=== PATIENT | female | born 1940 | race Caucasian/White ===

== ENCOUNTER 2016-09-28 10:19 | Inpatient (IN) | payer MEDICARE, OTHER ==
[2016-09-27 21:41] LABS: A/G RATIO 1.3 (0.7-1.9); ALBUMIN 3.6 G/DL (3.5-5.0); CALCIUM, SERUM 8.6 MG/DL (8.5-10.4); CHLORIDE, SERUM 109 MMOL/L (96-112); CHOL/HDL RATIO(NOT ORDER) 3.1 (0-5); CHOLESTEROL 154 MG/DL (< 200); FREE T4 0.82 NG/DL (0.76-1.46); GLOBULIN 2.8 G/DL (2.5-4.1); GLUCOSE, SERUM 111 MG/DL (60-99); HDL CHOLESTEROL 50 MG/DL (> 49); LDL CHOLESTEROL 83 MG/DL (< 130); NON-HDL CHOLESTEROL 104 MG/DL (< 160); POTASSIUM, SERUM 4.4 MMOL/L (3.5-5.3); SGOT(AST) 8 U/L (5-40); SGPT(ALT) 12 U/L (5-65); SODIUM, SERUM 142 MMOL/L (135-148); TOTAL BILIRUBIN 0.2 MG/DL (0-1.2); TOTAL PROTEIN 6.4 G/DL (6.0-8.5); TRIGLYCERIDE 108 MG/DL (< 150); ULTRASENSITIVE TSH 0.891 MCIU/ML (0.358-3.740)
[2016-09-27 21:58] LABS: ALKALINE PHOSPHATASE 85 U/L (45-117); BUN (BLOOD UREA NITROGEN) 49 MG/DL (6-23); CO2 (CARBON DIOXIDE) 23 MMOL/L (24-34); CREATININE 4.84 MG/DL (0.55-1.02); GFR AFRICAN AMERICAN 9 ML/MIN (>=60); GFR NON AFRICAN AMERICAN 8 ML/MIN (>=60)
[2016-09-27 22:20] LABS: BASOPHILS 0.4 %; BASOPHILS ABSOLUTE 0.03 10/3/uL (0.0-0.16); EOSINOPHILS 2.6 %; EOSINOPHILS ABSOLUTE 0.22 10/3/uL (0.0-0.53); HEMATOCRIT 29.2 % (36.0-48.0); IMMATURE GRANULOCYTES 1.7 %; IMMATURE GRANULOCYTES ABSOLUTE 0.14 10/3/uL (0.0-0.11); LYMPHOCYTES 20.7 %; LYMPHOCYTES ABSOLUTE 1.74 10/3/uL (0.67-4.30); MEAN CORPUS HGB CONC 30.8 g/dL (32.0-36.0); MEAN CORPUSCULAR HEMOGLOB 29.3 pg (26.0-34.0); MEAN CORPUSCULAR VOLUME 95.1 fL (80-100); MONOCYTES 5.7 %; MONOCYTES ABSOLUTE 0.48 10/3/uL (0.21-1.20); NEUTROPHILS 68.9 %; PLATELET COUNT 284 10/3/uL (150-400); RBC DISTRIBUTION WIDTH 13.8 % (12.0-16.0); RED CELL COUNT 3.07 10/6/uL (4.0-5.6); WHITE BLOOD CELLS 8.4 10/3/uL (4.5-10.5)
[2016-09-27 22:24] LABS: MANUAL DIFF NO %
--- NOTE | ~2016-09-28 | DS ---
Discharge Summary [address] [place]. [address] NAME: ELIA REYES : 38 STATUS : DIS IN PAT#: [id number] AGE: 76 ADM/REG DATE : 09/28/16 MR#: [id number] REPORT SERV DATE: 09/30/16 DICTATED BY: ANGELA DOWNEY DATE: 09/29/16 REPORT STATUS : Draft TRANSCRIBED BY: MODL DATE: 09/29/16 ADMISSION DATE: 09/28/2016 DISCHARGE DATE: 09/29/2016 HISTORY OF PRESENT ILLNESS: Ms Reyes is a 76-year-old female with a history of COPD and pulmonary hypertension who was sent to the emergency room from primary care physician's request secondary to acute renal failure. For further details, please refer to H and P dictated by Dr. Burton on 09/28/2016. HOSPITAL COURSE: Upon presentation to the hospital, the patient was admitted under Hospitalist Service with nephrology consult. For further details, please refer to consultation note by Nephrology dictated on 09/28/2016. During her hospitalization, the patient has remained hemodynamically stable. Initial plan from Nephrology was for the patient to be kept inpatient while dialysis initiated, however, given the patient has remained hemodynamically stable, the patient was re-evaluated by Nephrology with plans for the patient to follow up with Nephrology as outpatient to initiate dialysis as planned. The plan has been discussed with the patient who voices understanding and is agreeable with this plan. DISCHARGE DIAGNOSES: 1. End-stage renal disease. 2. Chronic obstructive pulmonary disease. 3. Hypertension. DISCHARGE MEDICATIONS: 1. Tiotropium. 2. Albuterol. 3. PhosLo per Nephrology. DISCHARGE EXAM: VITAL SIGNS: Blood pressure 136/60 with a pulse of 96, respirations 12, O2 saturation 99% on room air. GENERAL: The patient sitting in chair, in no acute distress. Appears stated age. HEENT: Normocephalic and atraumatic. Extraocular motors intact. Moist oral mucosa. NECK: Trachea midline and symmetric. No JVD noted. CHEST: Nontender to palpation. CARDIOVASCULAR: Regular rate and rhythm. S1, S2. No murmurs, rubs, or gallops. LUNGS: Clear to auscultation bilaterally. ABDOMEN: Positive bowel sounds. Nontender. Nondistended. EXTREMITIES: Trace pitting edema. No cyanosis. No clubbing. NEURO: Alert and oriented x3. No focal deficits appreciated. DISPOSITION: The patient will be discharged home given that Nephrology does not want to initiate inpatient hemodialysis, but wants the process to be started in the outpatient setting. So, the patient will be discharged home to follow up with Nephrology. ACTIVITY: As tolerated. Discharge Summary [address] [place]. [address] NAME: ELIA REYES : 38 STATUS : DIS IN PAT#: [id number] AGE: 76 ADM/REG DATE : 09/28/16 MR#: [id number] REPORT SERV DATE: 09/30/16 DICTATED BY: ANGELA DOWNEY DATE: 09/29/16 REPORT STATUS : Draft TRANSCRIBED BY: TONIO DATE: 09/29/16 DIET: Regular. Greater than 30 minutes was spent providing counseling, planning discharge, dictation of note. DICTATED BY: MD ISAURA Akers/TONIO Angela Downey MD / [id number] CC: MD JEET Akers MARGARET
--- NOTE | ~2016-09-28 | CN ---
Consultation Report [facility] [address] [place]. [address] NAME: ELIA ALDANA : 38 STATUS : ADM IN PAT#: [id number] AGE: 76 ADM/REG DATE : 09/28/16 MR#: [id number] REPORT SERV DATE: 09/28/16 DICTATED BY: RAMA CAAL DATE: 09/28/16 REPORT STATUS : Draft TRANSCRIBED BY: MODL DATE: 09/28/16 DATE OF CONSULTATION: 09/28/2016 TIME: 3:15 p.m. REASON FOR CONSULTATION: Elevation in BUN and creatinine. ASSESSMENT AND PLAN: Incidental finding of creatinine of 4.84 in a 76-year-old female as of 09/27 with only 30 mg/dL proteinuria, no hematuria or pyuria on a urinalysis, and essentially asymptomatic except for chronic lower limb edema. CT scan shows bilateral nephrolithiasis, but no hydronephrosis and I suspect she has a chronic glomerulonephritis versus interstitial nephritis longstanding based on a previous serum creatinine of 1.56 noted in 2012. Unfortunately, I suspect that the patient is now at end-stage renal failure, and plan therefore is as follows: 1. I would stop the IV fluids of the present bag. 2. No blood draws or IVs in left arm. Would place a ready-to-go graft. Initiate dialysis during this admission. 3. She has bilateral lower limb edema, questionable history of pulmonary fibrosis, evaluated at [facility] three years ago, but not on any diuretics, and we will get records from Dr. Lawler's office. 4. Check a PTH and vitamin D level. 5. Serological workup has been ordered to evaluate for possible cause of chronic kidney disease, but considering her asymptomatic nature, suspect this is underlying chronic kidney disease that has progressed over time. Consideration for a pulmonary-renal syndrome could be made, but at this point, her disease appears to be too far gone as far as the kidneys are concerned. HISTORY OF PRESENT ILLNESS: History is obtained from the records and the patient. She is a very pleasant 76-year-old female, whose initial history goes back 20 years. She had a lumpectomy of left breast with radiation therapy treatment for breast cancer by Dr. Victoria, who appeared to probably remain like a primary care physician she has had for 20 years almost. She remains stable and no recurrence of breast cancer and then developed what appeared to be some lung difficulties three years ago and was seen at [facility] and also now followed by Dr. Lawler and placed on oxygen. She denies any active workup done, but features did suggest either a chronic pneumonitis or a primary lung fibrosis, and she states she has had chronic lower limb edema. She was advised by Pulmonary to keep her lower limbs elevated, but has not been on any chronic diuretics. There are no precipitating diseases associated with her chronic kidney disease. Denies NSAID use. No history of hematuria, difficulty in voiding, or passage of kidney stones. No history of rash. Her main issue is the lower limb edema. She has no family history of end-stage renal failure and she does not admit to any acute kidney injuries, although her creatinines noted in the computer are creatinine 1.2 in 2010, 1.56 in 2012, and the marked elevations now. She is chronically anemic as well, indicating some degree of CKD. She denies any pruritus or dry skin. No hemoptysis. No recent change in vision or hearing. Actually denies any loss of appetite. Consultation Report [address] [place]. [address] NAME: ELIA ALDANA : 38 STATUS : ADM IN [facility]#: [id number] AGE: 76 ADM/REG DATE : 09/28/16 MR#: [id number] REPORT SERV DATE: 09/28/16 DICTATED BY: RAMA CAAL DATE: 09/28/16 REPORT STATUS : Draft TRANSCRIBED BY: TONIO DATE: 09/28/16 PAST MEDICAL HISTORY: Includes: 1. History of breast cancer as described above. 2. Pulmonary fibrosis with edema. 3. CT scan shows bilateral nephrolithiasis, but at this time, has not passed any stones. ALLERGIES: NO KNOWN DRUG ALLERGIES. MEDICATIONS: She is on albuterol and Stiolto inhaler at home. SOCIAL HISTORY: She does not smoke cigarettes. No alcohol. No medication or street drug usage. No history of heavy metal exposure. She is essentially a retired afterschool. REVIEW OF SYSTEMS: As per the HPI. PHYSICAL EXAMINATION: GENERAL: She is a very pleasant, elderly lady of average built, in no acute distress. HEENT: Her pupils are equal and reacting to light. She is not pale or jaundiced. Oral mucosa is moist. No pharyngitis. NECK: Supple. No thyromegaly. No carotid bruits. No supraclavicular, axillary, or inguinal adenopathy. VITAL SIGNS: Her blood pressure is 162/90, heart rate is in the 90s, afebrile. HEART: Conifer beats not displaced. S1 and S2. No rub. Healed surgical scar is noted. LUNGS: Air entry is equal bilaterally. CHEST: Clear to auscultation. She is on oxygen 2 L by nasal cannula. ABDOMEN: Mild distention. No hepatosplenomegaly. No tenderness, guarding, or rebound. Bowel sounds normal. EXTREMITIES: She has about 2+ peripheral edema. There is mild erythema of the legs, but otherwise no rash reported. Peripheral pulses are present in dorsalis pedis and posterior tibial. Muscle bulk and tone appropriate for age. No acute arthritic findings noted. NEUROLOGIC: She is awake, alert and oriented to time, place, and person. No gross neurological deficits described, and affect does not appear depressed. LABORATORY DATA: CT scan of her abdomen and pelvis indicates bilateral nephrolithiasis without hydronephrosis. She has a large gallbladder diverticulum containing bile with multiple gallstones, no inflammation. Small hepatic cysts were noted as well. She has a hemoglobin of 9.4; hematocrit 30.2; white count is 8.1; platelet count is 265,000. Sodium 143, potassium 4.4, chloride 115, CO2 of 23, BUN 47, creatinine 5.03. Her pH was 6.0, protein 30 mg/dL. There are no rbc's or white blood cells on her urinalysis. MG/MODL Rama Consultation Report [address] [place] [facility] [address] NAME: ELIA ALDANA : 38 STATUS : ADM IN [facility]#: [id number] AGE: 76 ADM/REG DATE : 09/28/16 MR#: [id number] REPORT SERV DATE: 09/28/16 DICTATED BY: RAMA CAAL DATE: 09/28/16 REPORT STATUS : Draft TRANSCRIBED BY: MODL DATE: 09/28/16 Esha Caal / [id number] CC: MD Jonnie Akers Margaret
--- NOTE | ~2016-09-28 | HP ---
History And Physical [address] [facility] [place]. [address] NAME: ELIA ALDANA : 38 STATUS : ADM IN [facility]#: [id number] AGE: 76 ADM/REG DATE : 09/28/16 MR#: [id number] REPORT SERV DATE: 09/28/16 DICTATED BY: JEAN-CLAUDE HELTON DATE: 09/28/16 REPORT STATUS : Draft TRANSCRIBED BY: MODFabienne DATE: 09/28/16 DATE OF ADMISSION: 09/28/2016 CHIEF COMPLAINT: Acute renal failure. HISTORY OF PRESENT ILLNESS: A 76-year-old white female with past medical history of COPD, pulmonary hypertension, presenting with acute renal failure of unknown duration. Apparently, the patient is trying to reestablish with a primary care physician and had some labs done. The patient apparently had elevated creatinine of 4. The patient states she has not seen a physician for approximately three years. Her last known encounter was approximately two years ago at [facility] where she gained massive amount of edema which required diuresis. Apparently, the patient after her encounter of diuresis never saw physician again until now. The patient denies any oliguria or anuria. She denies any history of heart failure, hemorrhage, diarrhea, fevers, chills, flank pain, or dysuria. In addition, the patient denies any abdominal pain or foamy urine. PAST MEDICAL HISTORY: As above. MEDICATIONS: The patient takes: 1. Albuterol 1 puff q.4 hours p.r.n. 2. Stiolto Respimat 2.5 mcg two puffs daily. ALLERGIES: NO KNOWN DRUG ALLERGIES. SOCIAL HISTORY: Quit smoking approximately two years ago. Nondrinker. FAMILY HISTORY: Significant for hypertension, kidney stones, and Parkinson's. REVIEW OF SYSTEMS: A 10-point review of systems conducted, which were negative except for above complaints. PHYSICAL EXAMINATION: VITAL SIGNS: Temperature 97.2, pulse of 105, respiratory rate 20, BP 142/56, and O2 saturation 96% on 2 L. HEAD AND NECK: Normocephalic, atraumatic. CARDIOVASCULAR: S1, S2. Regular rate and rhythm. LUNGS: Good air entry. No wheeze, rales, or rhonchi. ABDOMEN: Soft, nontender, nondistended. Positive bowel sounds. No organomegaly. EXTREMITIES: No clubbing, cyanosis, or edema. NEUROLOGICAL: Awake, alert, and oriented x3. Cranial nerves 2 through 12 grossly intact. No focal neurological deficit. LABORATORY DATA: Sodium 142, potassium 4.4, chloride 115, bicarb 23, BUN 47, creatinine 5.03, glucose 121, GFR 8, and calcium 8.7, total protein 6.9, albumin 3.6, globulin 3.3, total bilirubin 0.2, alkaline phosphatase 90, ALT 12, AST 9. WBC 8.1, hemoglobin 9.4, hematocrit 30.2, and platelets. cholesterol on 09/27/2016 shows cholesterol 154, DL 50, LDL History And Physical [address] [address] NAME: ELIA ALDANA : 38 STATUS : ADM IN [facility]#: [id number] AGE: 76 ADM/REG DATE : 09/28/16 MR#: [id number] REPORT SERV DATE: 09/28/16 DICTATED BY: JEAN-CLAUDE HELTON. DATE: 09/28/16 REPORT STATUS : Draft TRANSCRIBED BY: MODL DATE: 09/28/16 83, triglycerides 108. CT of abdomen and pelvis without contrast shows bilateral nephrolithiasis without hydronephrosis or urolithiasis. Large gallbladder diverticulum containing inspissated bowel and multiple gallstones. No acute inflammation identified. Small hepatic cyst. ASSESSMENT/PLAN: 1. Acute renal failure, unknown etiology. Rule out whether it is pre-intra or post-renal. We will check urine sodium and urine creatinine to check for FENa. We will also order renal consult. In addition, we will also order ultrasound of the bladder and kidneys. In addition, we will also start the patient on half NS at 60 mL an hour. 2. Chronic obstructive pulmonary disease, currently stable. Continue the patient's breathing treatments and Respimat. 3. Pulmonary hypertension, asymptomatic. 4. Deep venous thrombosis prophylaxis. We will give the patient heparin. MADY/EVERL Jean-Claude Helton MD / [id number] CC: MD JEET Akers MARGARET
[2016-09-28 10:10] LABS: BASOPHILS 0.4 %; BASOPHILS ABSOLUTE 0.03 10/3/uL (0.0-0.16); EOSINOPHILS 2.5 %; HEMATOCRIT 30.2 % (36.0-48.0); HEMOGLOBIN 9.4 g/dL (12.0-16.0); IMMATURE GRANULOCYTES 1.8 %; IMMATURE GRANULOCYTES ABSOLUTE 0.15 10/3/uL (0.0-0.11); LYMPHOCYTES 16.9 %; LYMPHOCYTES ABSOLUTE 1.37 10/3/uL (0.67-4.30); MANUAL DIFF NO %; MEAN CORPUS HGB CONC 31.1 g/dL (32.0-36.0); MEAN CORPUSCULAR HEMOGLOB 29.8 pg (26.0-34.0); MEAN CORPUSCULAR VOLUME 95.9 fL (80-100); MEAN PLATELET VOLUME 9.3 fL (9.2-13.0); MONOCYTES ABSOLUTE 0.41 10/3/uL (0.21-1.20); NEUTROPHILS 73.4 %; NEUTROPHILS ABSOLUTE 5.96 10/3/uL (2.02-8.40); PLATELET COUNT 265 10/3/uL (150-400); RBC DISTRIBUTION WIDTH 13.5 % (12.0-16.0); RED CELL COUNT 3.15 10/6/uL (4.0-5.6); WHITE BLOOD CELLS 8.1 10/3/uL (4.5-10.5)
[~2016-09-28 10:19] MED LIST: STIOLTO RESPIMAT4 GM INH; VENTOLIN HFA INH
[2016-09-28 10:23] LABS: ASCORBIC ACID (UR NOT ORDER) NEG (NEG); BILIRUBIN, URINE NEGATIVE (NEG); ER URINALYSIS TAT 0 Hrs 08 Mins; KETONE, URINE NEGATIVE (NEG); LEUKOCYTE ESTERASE(NOT OR NEG (NEG); NITRITE (URINE) NEG (NEG); WBC (NOT ORDERED) (RFLEX) 1 (0-5)
[2016-09-28 10:28] LABS: A/G RATIO 1.1 (0.7-1.9); ALBUMIN 3.6 G/DL (3.5-5.0); ALKALINE PHOSPHATASE 90 U/L (45-117); BUN (BLOOD UREA NITROGEN) 47 MG/DL (6-23); CALCIUM, SERUM 8.7 MG/DL (8.5-10.4); CHLORIDE, SERUM 115 MMOL/L (96-112); CO2 (CARBON DIOXIDE) 23 MMOL/L (24-34); CREATININE 5.03 MG/DL (0.55-1.02); GFR AFRICAN AMERICAN 9 ML/MIN (>=60); GFR NON AFRICAN AMERICAN 8 ML/MIN (>=60); GLOBULIN 3.3 G/DL (2.5-4.1); GLUCOSE, SERUM 121 MG/DL (60-99); POTASSIUM, SERUM 4.4 MMOL/L (3.5-5.3); SGOT(AST) 9 U/L (5-40); SGPT(ALT) 12 U/L (5-65); SODIUM, SERUM 143 MMOL/L (135-148); TOTAL BILIRUBIN 0.2 MG/DL (0-1.2); TOTAL PROTEIN 6.9 G/DL (6.0-8.5)
[2016-09-28 22:52] LABS: CREATININE RANDOM UR 81.6 MG/DL; UR PROTEIN/CREAT RATIO 1.14 (< 0.2)
[2016-09-29 05:56] LABS: BASOPHILS 0.2 %; BASOPHILS ABSOLUTE 0.02 10/3/uL (0.0-0.16); EOSINOPHILS 2.5 %; HEMOGLOBIN 7.9 g/dL (12.0-16.0); IMMATURE GRANULOCYTES 1.5 %; IMMATURE GRANULOCYTES ABSOLUTE 0.12 10/3/uL (0.0-0.11); LYMPHOCYTES ABSOLUTE 2.27 10/3/uL (0.67-4.30); MEAN CORPUS HGB CONC 30.3 g/dL (32.0-36.0); MEAN PLATELET VOLUME 9.5 fL (9.2-13.0); MONOCYTES 7.2 %; MONOCYTES ABSOLUTE 0.58 10/3/uL (0.21-1.20); NEUTROPHILS 60.6 %; NEUTROPHILS ABSOLUTE 4.91 10/3/uL (2.02-8.40); PLATELET COUNT 232 10/3/uL (150-400); RBC DISTRIBUTION WIDTH 13.6 % (12.0-16.0); RED CELL COUNT 2.72 10/6/uL (4.0-5.6); WHITE BLOOD CELLS 8.1 10/3/uL (4.5-10.5)
[2016-09-29 05:58] LABS: HEMATOCRIT 26.1 % (36.0-48.0); MANUAL DIFF NO %
[2016-09-29 06:01] LABS: INTERNATIONAL NORMAL RATI 1.1 UNITS (-); PROTIME (NOT ORD) 14.1 SEC (12.0-14.5)
[2016-09-29 06:13] LABS: INTACT PTH (ICMA) 768.7 PG/ML (10.0-65.0)
[2016-09-29 06:39] LABS: % IRON SAT 23 % (20-50); A/G RATIO 1.1 (0.7-1.9); ALBUMIN 3.1 G/DL (3.5-5.0); ALKALINE PHOSPHATASE 79 U/L (45-117); BUN (BLOOD UREA NITROGEN) 45 MG/DL (6-23); CALCIUM, SERUM 8.3 MG/DL (8.5-10.4); CHLORIDE, SERUM 115 MMOL/L (96-112); CO2 (CARBON DIOXIDE) 21 MMOL/L (24-34); COMPLEMENT C3 103 MG/DL (75-161); CREATININE 4.96 MG/DL (0.55-1.02); FERRITIN 112 NG/ML (8-252); GFR AFRICAN AMERICAN 9 ML/MIN (>=60); GFR NON AFRICAN AMERICAN 8 ML/MIN (>=60); GLOBULIN 2.8 G/DL (2.5-4.1); IRON BINDING CAPACITY 238 MCG/DL (225-410); IRON, SERUM 55 MCG/DL (35-150); PHOSPHORUS, SERUM 5.2 MG/DL (2.5-4.5); POTASSIUM, SERUM 4.4 MMOL/L (3.5-5.3); SGOT(AST) 8 U/L (5-40); SGPT(ALT) 11 U/L (5-65); SODIUM, SERUM 143 MMOL/L (135-148); TOTAL BILIRUBIN 0.2 MG/DL (0-1.2); TOTAL PROTEIN 5.9 G/DL (6.0-8.5)
[2016-09-29 06:41] LABS: DIRECT BILIRUBIN < 0.1 MG/DL (0.0-0.4); FOLATE 11.4 NG/ML (>5.2); GLUCOSE, SERUM 95 MG/DL (60-99); INDIRECT BILIRUBIN(NOT ORDER) 0.1 MG/DL (0.1-0.9)
[2016-09-29] MEDS ORDERED: PHOSLO PO (15:59)
[2016-10-02 10:14] LABS: A/G 1.87 RATIO (0.9-2.10); ALB RELATIVE % 65.2 % (60.0-89.0); ALBUMIN (ELECTRO) 3.85 GM/DL (3.2-5.5); ALPHA 1 (ELECTRO) 0.18 GM/DL (0.1-0.4); ALPHA 1 RELAT % (NOT ORD) 3.1 % (1.0-4.0); ALPHA 2 (ELECTRO) 0.73 GM/DL (0.5-1.10); ALPHA 2 RELAT % 12.3 % (4.5-26.0); BETA GLOBULIN (SPE) 0.65 GM/DL (0.60-1.30); BETA RELATIVE % 11.1 % (9.0-22.0); GAMMA GLOBULIN (SPE) 0.49 G/DL (0.70-1.60); GAMMA RELAT % 8.3 % (6.0-22.0)
[2016-10-02 10:18] LABS: T PROTEIN (ELECT)(NOT OR 5.9 G/DL (6.0-8.5)
[2016-10-02 10:28] LABS: HEPATITIS B CORE AB IGM NON-REACTIVE (NON-REAC); HEPATITIS C ANTIBODY NON-REACTIVE (NON-REACT)
[2016-10-02 10:29] LABS: HIV COMBO NON-REACTIVE (NON REAC)
[2016-10-02 10:30] LABS: HEP A ANTIBODY IGM NON-REACTIVE (NON-REACT)
[2016-10-02 10:35] LABS: HEPATITIS B SURFACE ANTIGEN NON-REACTIVE (NON-REACT)
[2016-10-02 11:44] LABS: HEMATOCRIT 26.1 % (()); RBC FOLATE 799 ng/mL (499-1504)
[2016-10-02 22:35] LABS: ANCA <1:20 (()); MYELOPEROXIDASE ANTIBODY <0.2 AI (<1.0); PROTEINASE 3 ANTIBODY <0.2 AI (<1.0)
[2016-10-03 10:40] LABS: ANA TITER <1:40 TITER
== END 2016-09-29 17:25 | disposition home or self-care (01) | DRG 683 ==
LOC: ER 10:19 → 5SO 11:39
PROVIDERS: Hospitalist; Internal Medicine Nephrology; Nurse Practitioner Family
DX: I12.0 Hypertensive chronic kidney disease with stage 5 chronic kidney disease or end stage renal disease (principal); N18.5 Chronic kidney disease, stage 5; I27.2 Other secondary pulmonary hypertension; J44.9 Chronic obstructive pulmonary disease, unspecified; N25.81 Secondary hyperparathyroidism of renal origin; D63.1 Anemia in chronic kidney disease; N20.0 Calculus of kidney; K76.89 Other specified diseases of liver; Z87.891 Personal history of nicotine dependence; Z85.3 Personal history of malignant neoplasm of breast; Z92.3 Personal history of irradiation
CPT/HCPCS: 36415; 74176; 76775; 80053; 80061; 80069; 80074; 81001; 82248; 82306; 82570; 82607; 82728; 82746; 82747; 83516; 83516-59; 83540; 83550; 83735; 83970; 84155; 84156; 84165; 84439; 84443; 85025; 85610; 86039; 86160; 86255; 87389; 99285; A9270-GY; G0463